=== PATIENT | female | born 1975 | race Caucasian/White ===

== ENCOUNTER → 2018-07-05 | Outpatient (CLI) | payer OTHER ==
[~2018-07-05] VITALS: Ht 162.6 cm; Wt 90.7 kg
[~2018-07-05] MED LIST: ALEVE220 MG PO; ASPIR 8181 MG PO; BRISDELLE7.5 MG PO; ENOXAPARIN40 MG/0.1 SUBQ; ERGOCALCIF50000 UNIT PO; FIBER TABS625 MG PO; FLEXERIL PO; FOLIC ACID1 MG PO; IRON325 PO; LEVAQUIN 500 M500 M2 PO; METHOTREXATE 22.5 MG PO; NOHOMEMEDICATIONS; NORCO 5-325 TA1 EACH PO; PAXIL10 MG; PROBIOTIC1 EAC1 PO; SUPER B COMPLE1 EAC2 PO; TYLENOL325 MG PO; XARELTO15 MG PO
--- NOTE | ~2018-07-05 | P ---
[facility] [place] [address] PROCEDURE REPORT Name: CHOUDHARYPAM Room #: [facility]#: [id number] Admission: 07/05/18 Attend Phys: Daryl Torres Discharge: Date of : 73 Report #: [id number] THIS REPORT FOR: //name// CC: Daryl Hernandez [facility] DATE OF SERVICE: 07/05/2018 PROCEDURE PERFORMED: Colonoscopy. HISTORY OF PRESENT ILLNESS: The patient is a 43-year-old female who presents today for a screening colonoscopy. Father has a recent diagnosis of colon cancer, undergoing treatment. The patient denies any symptoms. No previous history of endoscopy. DESCRIPTION OF PROCEDURE: The risks and benefits of the procedure were explained to the patient, those risks including but not limited to bleeding, perforation, the risk of sedation. She understood these risks and gave informed consent. Sedation was given using propofol per Anesthesia. Next, a digital rectal exam was initially performed, which was normal. Next, using a standard Olympus colonoscope, the scope was placed in the patient's anus and advanced under direct vision to the cecum. The overall prep was excellent. The cecum and ileocecal valve were normal in appearance. Ascending, transverse, descending and sigmoid colon were all normal. The rectal mucosa was normal. On retroflexion, no abnormalities were noted. The scope was then withdrawn and the procedure terminated. The patient tolerated the procedure well. IMPRESSION: Normal colonoscopy. RECOMMENDATIONS: Repeat colonoscopy in 5 years. Thank you for allowing me to participate in her care. By: [id number] Daryl Hernandez MD /nt
== END | disposition home or self-care (01) ==
LOC: GI 07:02
DX: Z12.11 Encounter for screening for malignant neoplasm of colon (principal); Z80.0 Family history of malignant neoplasm of digestive organs; G89.29 Other chronic pain; Z90.710 Acquired absence of both cervix and uterus; Z85.42 Personal history of malignant neoplasm of other parts of uterus; Z86.2 Personal history of diseases of the blood and blood-forming organs and certain disorders involving the immune mechanism; Z98.890 Other specified postprocedural states; Z79.899 Other long term (current) drug therapy; Z79.82 Long term (current) use of aspirin; Z86.79 Personal history of other diseases of the circulatory system